=== PATIENT | male | born 1995 | race Caucasian/White ===

== ENCOUNTER 2018-06-18 15:33 | Emergency (ER) | payer OTHER ==
--- NOTE | 2018-06-18 15:42 | PDOC ---
History of Present Illness - General Chief Complaint: Pain Stated Complaint: ABDOMINAL PAIN - History of Present Illness Initial Comments: The pt is a 22M w/ no reported PMH who presents for evaluation of 2 days of constant but waxing/waning, non-radiating, cramping/sharp epigastric abdominal pain. Reports pain is worse with food intake and has not tried taking anything to alleviate the pain. Endorses one episode NBNB emesis today. Denies fevers/ chills, diarrhea, blood in his stool, dysuria, hematuria, or rash. Pt reports he has been able to tolerate food/drink over the last two days. 06/18/18 15:44 Past History - Past Medical History Allergies/Adverse Reactions: Allergies Allergy/AdvReac Type Severity Reaction Status Date / Time cephalexin monohydrate Allergy Hives Verified 06/18/18 15:34 [From [employer]] Home Medications: Ambulatory Orders NK [No Known Home Medication] 06/18/18 Psychiatric Problems: Yes (ADHD) - Immunization History Td Vaccination: Yes TDAP Vaccination: No Immunization Up to Date: Yes - Suicide/Smoking/Psychosocial Hx Smoking Status: No Smoking History: Never smoked Have you smoked in the past 12 months: No Number of Cigarettes Smoked Daily: 0 Hx Alcohol Use: No Drug/Substance Use Hx: No Substance Use Type: None Review of Systems - Review of Systems Able to Perform ROS?: Yes Comments:: GENERAL/CONSTITUTIONAL: No fever or chills. No weakness HEAD, EYES, EARS, NOSE AND THROAT: No change in vision. No sore throat CARDIOVASCULAR: No chest pain or shortness of breath RESPIRATORY: Denies cough, hemoptysis GENITOURINARY: No dysuria, frequency, or change in urination MUSCULOSKELETAL: No joint or muscle swelling or pain. No neck or back pain SKIN: No rash NEUROLOGIC: No headache, vertigo, loss of consciousness, or change in strength/ sensation ENDOCRINE: No increased thirst. No abnormal weight change HEMATOLOGIC/LYMPHATIC: No anemia, easy bleeding, or history of blood clots ALLERGIC/IMMUNOLOGIC: No hives or skin allergy 06/18/18 15:41 Is the patient limited Arabic proficient: No *Physical Exam - Vital Signs Vital Signs Temp Pulse Resp BP Pulse Ox 98.1 F 100 H 16 135/81 100 06/18/18 15:34 06/18/18 15:34 06/18/18 15:34 06/18/18 15:34 06/18/18 15:34 06/18/18 16:11 - Physical Exam Comments: GENERAL: Awake, alert, and oriented to person/place/time, in no acute distress HEAD: No signs of trauma, normocephalic, atraumatic EYES: PERRLA, EOMI, sclera anicteric, conjunctiva clear ENT: Hearing grossly normal, nares patent, oropharynx clear without exudates. Moist mucosa LUNGS: No distress, speaks full sentences, clear to auscultation bilaterally HEART: Regular rate and rhythm, normal S1 and S2, no murmurs appreciated, peripheral pulses normal and equal bilaterally ABDOMEN: Soft, mild epigastric TTP w/o rebound or guarding, normoactive bowel sounds EXTREMITIES: Normal inspection, Normal range of motion, no edema. No clubbing or cyanosis NEUROLOGICAL: Cranial nerves II through XII grossly intact. Normal speech, normal gait, no focal sensorimotor deficits SKIN: Warm, Dry 06/18/18 15:42 Medical Decision Making - Medical Decision Making The pt is a 22M w/ no reported PMH who presents for evaluation of 2 days of epigastric abdominal pain w/ associated NBNB emesis x1 likely 2/2 gastritis ED Course Maalox, Zantac 06/18/18 16:12 Pt reports symptoms have improved. Pt tolerating PO in ED w/ no emesis Plan for D/C w/ PCP f/u Discharge instructions and return precautions given Pt in agreement and verbalized understanding Dispo: home 06/18/18 16:56 *DC/Admit/Observation/Transfer Diagnosis at time of Disposition: Gastritis Qualifiers: Gastritis type: unspecified gastritis Chronicity: acute Gastritis bleeding: without bleeding Qualified Code(s): K29.00 - Acute gastritis without bleeding - Discharge Dispostion Disposition: HOME Condition at time of disposition: Stable - Referrals Referrals: Mahamed Lomas MD [Primary Care Provider] - - Patient Instructions Printed Discharge Instructions: Gastritis Additional Instructions: You were seen in the Emergency Department for evaluation of abdominal pain. You were treated with Maalox and Zantac. Review the handout provided at discharge. Follow up with your primary care provider within a week if your symptoms do not improve. You may take Maalox over the counter for symptomatic relief. Return to the Emergency Department if you develop fevers/chills, worsening pain, inability to tolerate food/drink, diarrhea, blood in your stool or vomit, worsening symptoms, or any new/concerning symptoms. - Post Discharge Activity Forms/Work/School Notes: Back to Work
[2018-06-18 15:55] VITALS: BP 135/81; PULSE 100; TEMP 98.1; BMI 21.2
[2018-06-18] MEDS ORDERED: MAG HYDROX/AL HYDROX/SIMETH 30 ML UNIT-DOSE CUP PO ONE (15:57)
[2018-06-18] MEDS ORDERED: RANITIDINE HCL 150 MG TABLET (FP) PO ONE (15:57)
[2018-06-18] MEDS ORDERED: RANITIDINE HCL 150 MG TABLET (FP) ONE (15:59)
[2018-06-18] MEDS ORDERED: MAG HYDROX/AL HYDROX/SIMETH 30 ML UNIT-DOSE CUP ONE (15:59)
--- NOTE | 2018-06-18 16:00 | PDOC ---
Attending Attestation - Resident Resident Name: Andrew Gillis - ED Attending Attestation I have performed the following: I have examined & evaluated the patient, The case was reviewed & discussed with the resident, I agree w/resident's findings & plan, Exceptions are as noted - HPI HPI: 06/18/18 16:42 Reviewed Residents HPI - Physicial Exam PE: 06/18/18 16:42 Reviewed Residents PE - Medical Decision Making 06/18/18 16:42 22 years old no significant past medical history presents with 2 day history of waxing and waning nonradiating epigastric discomfort. Patient states pain is worse with food no alleviating factors No travel no sick contacts no recent antibiotics no significant alcohol or drug use Treated with by mouth meds we'll observe and reevaluate. Dr. Lozano to reevaluate patient and dispo
== END 2018-06-18 17:18 | disposition home or self-care (01) ==
LOC: FER 15:33
DX: K29.00 Acute gastritis without bleeding (principal); F90.9 Attention-deficit hyperactivity disorder, unspecified type
CPT/HCPCS: 99282-25